=== PATIENT | female | born 1995 | race Caucasian/White ===

== ENCOUNTER 2018-04-08 09:02 | Emergency (ER) | payer MEDICAID ==
[~2018-04-08] VITALS: Ht 162.6 cm; Wt 90.0 kg
[2018-04-08] MEDS ORDERED: ERYTHROMYCIN O3.5 GM OD (09:22)
[2018-04-08 09:37] VITALS: BP 125/73
== END 2018-04-08 09:51 | disposition home or self-care (01) ==
LOC: ED 09:02
DX: H10.9 Unspecified conjunctivitis (principal)

== ENCOUNTER 2019-07-04 | Emergency (ER) | payer OTHER ==
[~2019-07-04] MED LIST: ERYTHROMYCIN O3.5 GM OD
[2019-07-04] MEDS ORDERED: AZITHROMYCIN500 MG PO (18:49)
[2019-07-04] MEDS ORDERED: DIFLUCAN100 M1 PO (18:52)
== END 2019-07-04 18:55 | disposition home or self-care (01) ==
DX: J02.0 Streptococcal pharyngitis (principal)

== ENCOUNTER 2022-04-01 18:13 | Emergency (ER) | payer OTHER ==
[~2022-04-01] VITALS: Ht 162.6 cm; Wt 100.0 kg
[~2022-04-01 18:13] MED LIST changes: +AZITHROMYCIN500 MG PO; +DIFLUCAN100 M1 PO
[2022-04-01] MEDS ORDERED: ULTRAM50 MG PO (20:29)
[2022-04-01] MEDS ORDERED: CIPROFLOXACN500 MG PO (20:29)
[2022-04-01] MEDS ORDERED: FLOXIN OTIC0.3 % AD (20:29)
[2022-04-01 20:38] VITALS: BP 138/89
== END 2022-04-01 20:49 | disposition home or self-care (01) ==
LOC: ED 18:13
DX: H66.91 Otitis media, unspecified, right ear (principal); F17.200 Nicotine dependence, unspecified, uncomplicated; Z20.822 Contact with and (suspected) exposure to COVID-19

== ENCOUNTER 2022-05-02 08:18 | Emergency (ER) | payer OTHER ==
[~2022-05-02] VITALS: Ht 162.6 cm; Wt 91.0 kg
[~2022-05-02 08:18] MED LIST changes: +CIPROFLOXACN500 MG PO; +FLOXIN OTIC0.3 % AD; +ULTRAM50 MG PO
[2022-05-02 08:25] VITALS: BP 131/89
[2022-05-02 09:41] LABS: URINE BILIRUBIN - DIPSTICK NEGATIVE (NEGATIVE); URINE BLOOD DIPSTICK LARGE (NEGATIVE); URINE COLOR YELLOW; URINE GLUCOSE - DIPSTICK NEGATIVE (NEGATIVE); URINE KETONE NEGATIVE (NEGATIVE); URINE LEUK ESTERASE NEGATIVE (NEGATIVE); URINE PROTEIN - DIPSTICK NEGATIVE (NEG-TRACE); URINE SPECIFIC GRAVITY 1.025; URINE UROBILINOGEN - DIPSTICK 0.2 E.U./dL (0.2)
[2022-05-02 09:50] LABS: URINE NITRITE - DIPSTICK NEGATIVE (Negative)
[2022-05-02 09:51] LABS: URINE EPITHELIAL CELLS FEW EPI/hpf (0-FEW); URINE RBC 25-50 RBC/hpf (0-5); URINE WBC 0-2 WBC/hpf (0-5)
[2022-05-02 11:25] VITALS: BP 131/89
== END 2022-05-02 11:31 | disposition home or self-care (01) ==
LOC: ED 08:18
PROVIDERS: Emergency Medicine
DX: N94.6 Dysmenorrhea, unspecified (principal); F17.200 Nicotine dependence, unspecified, uncomplicated

== ENCOUNTER 2022-07-07 20:42 | Emergency (ER) | payer OTHER ==
[~2022-07-07] VITALS: Ht 162.6 cm; Wt 98.2 kg
[2022-07-07 20:50] VITALS: BP 130/80
== END 2022-07-07 21:55 | disposition left against medical advice (07) | DRG 951 ==
LOC: ED 20:42 → LWOBS 21:55
DX: Z53.21 Procedure and treatment not carried out due to patient leaving prior to being seen by health care provider (principal)

== ENCOUNTER 2022-09-19 13:55 | Emergency (ER) | payer OTHER ==
[~2022-09-19] VITALS: Ht 162.6 cm; Wt 99.0 kg
[2022-09-19 14:06] VITALS: BP 137/88
[2022-09-19 16:20] VITALS: BP 118/68
== END 2022-09-19 16:23 | disposition home or self-care (01) ==
LOC: ED 13:55
DX: M25.571 Pain in right ankle and joints of right foot (principal)

== ENCOUNTER 2022-10-19 11:51 | Emergency (ER) | payer SELFPAY ==
[~2022-10-19] VITALS: Ht 165.1 cm; Wt 225.0 kg
[2022-10-19 11:59] VITALS: BP 122/87
[2022-10-19 12:30] VITALS: BP 107/77
[2022-10-19 13:00] VITALS: BP 100/64
[2022-10-19 13:30] VITALS: BP 106/59
[2022-10-19 16:41] VITALS: BP 108/82
[2022-10-19 16:43] VITALS: BP 108/82
== END 2022-10-19 16:44 | disposition home or self-care (01) | DRG 153 ==
LOC: ED 11:51
DX: J02.9 Acute pharyngitis, unspecified (principal); Z20.822 Contact with and (suspected) exposure to COVID-19

== ENCOUNTER 2023-06-18 10:59 | Emergency (ER) | payer SELFPAY ==
[~2023-06-18] VITALS: Ht 165.1 cm; Wt 92.0 kg
[~2023-06-18 10:59] MED LIST changes: +DIFLUCAN150 MG PO; +MACROBID100 M1 PO
[2023-06-18 12:43] LABS: BASO% 0.3 % (0-3); EOS% 3.2 % (0-8); HEMOGLOBIN 12.5 g/dl (12.0-16.0); IMMATURE GRANULOCYTES 0.2 % (0.0-5.0); LYMPH% 26.1 % (15-41); MEAN CELL VOLUME 92.5 fL CALC (80.0-100.0); MEAN CORPUSCULAR HGB 31.3 pG CALC (26.0-32.0); MEAN CORPUSCULAR HGB CONC 33.8 g/dL CAL (32.0-36.0); MONO% 7.1 % (2-13); NEUT# 4.09 thou/uL (2.00-7.15); NEUT% 63.1 % (42-76); RED CELL DISTRI WIDTH 12.5 % (11.5-15.5)
[2023-06-18 12:57] LABS: ALBUMIN 4.4 g/dL (3.2-5.0); ALKALINE PHOSPHATASE 50 u/l (38-126); ANION GAP 11 (6-22 (CALC)); BILIRUBIN, TOTAL 0.6 mg/dL (0.02-1.3); BUN 6 mg/dL (7-17); BUN/CREATININE RATIO 8 (12-20 (CALC)); CARBON DIOXIDE 22 mmol/l (22-30); CHLORIDE 111 mmol/l (95-108); CREATININE 0.7 mg/dL (0.5-1.0); GFR FOR AFR.AMER. > 60 ML/MIN (>=60 (CALC)); GFR OTHER RACES > 60 ML/MIN (>=60 (CALC)); LIPASE 291 u/l (23-300); POTASSIUM 4.1 mmol/l (3.5-5.1); SGOT/AST 28 u/l (14-36); SODIUM 140 mmol/l (137-146); TOTAL PROTEIN 7.5 g/dL (6.3-8.2)
[2023-06-18 14:51] LABS: URINE BILIRUBIN - DIPSTICK Negative (NEGATIVE); URINE BLOOD DIPSTICK Negative (NEGATIVE); URINE GLUCOSE - DIPSTICK Negative (NEGATIVE); URINE KETONE Negative (NEGATIVE); URINE NITRITE - DIPSTICK Negative (Negative); URINE PROTEIN - DIPSTICK Negative (NEG-TRACE); URINE SPECIFIC GRAVITY 1.025
[2023-06-18 14:53] LABS: URINE COLOR Yellow; URINE LEUK ESTERASE Small (NEGATIVE)
[2023-06-18 15:03] LABS: URINE BACTERIA FEW hpf; URINE SQUAMOUS EPITHELIAL CELL FEW EPI/hpf (0-FEW)
[2023-06-18] MEDS ORDERED: ZOFRAN4 MG/TAB PO (15:32)
[2023-06-18] MEDS ORDERED: DIFLUCAN150 MG PO (15:32)
[2023-06-18] MEDS ORDERED: BACTRIM DS1 TAB PO (15:32)
[2023-06-18 15:44] VITALS: BP 123/85
== END 2023-06-18 16:13 | disposition home or self-care (01) | DRG 690 ==
LOC: ED 10:59
PROVIDERS: Family Medicine
DX: N39.0 Urinary tract infection, site not specified (principal); J45.909 Unspecified asthma, uncomplicated; F17.290 Nicotine dependence, other tobacco product, uncomplicated; Z20.822 Contact with and (suspected) exposure to COVID-19

== ENCOUNTER 2024-06-24 20:08 | Emergency (ER) | payer OTHER ==
[~2024-06-24] VITALS: Ht 165.1 cm; Wt 92.0 kg
[~2024-06-24 20:08] MED LIST changes: +BACTRIM DS1 TAB PO; +ZOFRAN4 MG/TAB PO
[2024-06-24 21:52] VITALS: BP 123/94
[2024-06-24] MEDS ORDERED: ONDANSETRON 4 MG/TAB ODT SL ONE (23:30)
[2024-06-24] MEDS ORDERED: ZOFRAN4 MG/TAB PO (23:46)
[2024-06-25 00:09] VITALS: BP 123/94
== END 2024-06-25 00:09 | disposition home or self-care (01) ==
LOC: ED 20:08
DX: B34.9 Viral infection, unspecified (principal); J45.909 Unspecified asthma, uncomplicated; Z72.0 Tobacco use; Z20.822 Contact with and (suspected) exposure to COVID-19